=== PATIENT | female | born 1990 | race Caucasian/White ===

== ENCOUNTER → 2023-10-01 16:49 | Outpatient (REF) | payer OTHER, SELFPAY | LOC: PNTC 16:49 | PROVIDERS: ATTENDING PHYSICIAN Obstetrics & Gynecology | DX: O09.529 Supervision of elderly multigravida, unspecified trimester (principal); O99.210 Obesity complicating pregnancy, unspecified trimester; D25.9 Leiomyoma of uterus, unspecified | CPT/HCPCS: 76805 ==

== ENCOUNTER → 2023-10-29 16:23 | Outpatient (REF) | payer OTHER, SELFPAY | LOC: PNTC 16:23 | PROVIDERS: ATTENDING PHYSICIAN Obstetrics & Gynecology | DX: O09.529 Supervision of elderly multigravida, unspecified trimester (principal); O99.210 Obesity complicating pregnancy, unspecified trimester; D25.9 Leiomyoma of uterus, unspecified | CPT/HCPCS: 76811 ==

== ENCOUNTER → 2023-11-10 16:48 | Outpatient (REF) | payer OTHER, SELFPAY | LOC: PNTC 16:48 | PROVIDERS: ATTENDING PHYSICIAN Obstetrics & Gynecology | DX: O99.210 Obesity complicating pregnancy, unspecified trimester (principal); O28.3 Abnormal ultrasonic finding on antenatal screening of mother; O34.10 Maternal care for benign tumor of corpus uteri, unspecified trimester | CPT/HCPCS: 76815 ==

== ENCOUNTER → 2023-12-02 13:45 | Outpatient (REF) | payer OTHER, SELFPAY | LOC: PNTC 13:45 | PROVIDERS: ATTENDING PHYSICIAN Obstetrics & Gynecology | DX: O99.210 Obesity complicating pregnancy, unspecified trimester (principal) | CPT/HCPCS: 76816 ==

== ENCOUNTER → 2023-12-31 16:21 | Outpatient (REF) | payer OTHER, SELFPAY | LOC: PNTC 16:21 | PROVIDERS: ATTENDING PHYSICIAN Obstetrics & Gynecology | DX: O99.210 Obesity complicating pregnancy, unspecified trimester (principal); O34.10 Maternal care for benign tumor of corpus uteri, unspecified trimester | CPT/HCPCS: 76816 ==

== ENCOUNTER → 2024-02-04 16:56 | Outpatient (REF) | payer OTHER, SELFPAY | LOC: PNTC 16:56 | PROVIDERS: ATTENDING PHYSICIAN Obstetrics & Gynecology | DX: O99.210 Obesity complicating pregnancy, unspecified trimester (principal); O34.10 Maternal care for benign tumor of corpus uteri, unspecified trimester | CPT/HCPCS: 59025 ==

== ENCOUNTER → 2024-02-11 17:00 | Outpatient (REF) | payer OTHER, SELFPAY | LOC: PNTC 17:00 | PROVIDERS: ATTENDING PHYSICIAN Obstetrics & Gynecology | DX: O09.519 Supervision of elderly primigravida, unspecified trimester (principal); O34.10 Maternal care for benign tumor of corpus uteri, unspecified trimester | CPT/HCPCS: 59025 ==

== ENCOUNTER → 2024-02-15 17:43 | Outpatient (REF) | payer OTHER, SELFPAY | LOC: PNTC 17:43 | PROVIDERS: ATTENDING PHYSICIAN Obstetrics & Gynecology | DX: O36.8190 Decreased fetal movements, unspecified trimester, not applicable or unspecified (principal) | CPT/HCPCS: 76815 ==

== ENCOUNTER → 2024-02-18 17:02 | Outpatient (REF) | payer OTHER, SELFPAY | LOC: PNTC 17:02 | PROVIDERS: ATTENDING PHYSICIAN Obstetrics & Gynecology | DX: O99.210 Obesity complicating pregnancy, unspecified trimester (principal); Z87.42 Personal history of other diseases of the female genital tract | CPT/HCPCS: 59025 ==

== ENCOUNTER → 2024-02-24 15:53 | Outpatient (REF) | payer OTHER, SELFPAY | LOC: PNTC 15:53 | PROVIDERS: ATTENDING PHYSICIAN Obstetrics & Gynecology | DX: O99.210 Obesity complicating pregnancy, unspecified trimester (principal); Z98.891 History of uterine scar from previous surgery | CPT/HCPCS: 59025 ==

== ENCOUNTER 2024-03-01 00:02 | Inpatient (IN) | payer OTHER, SELFPAY ==
[2024-03-01 00:24] VITALS: BP 143/69; BMI 40.4
[2024-03-01 01:02] LABS: % Basophils 0.3 % (0-2); % Eosinophils 0.9 % (0-6); % Immature Granulocytes 0.9 % (0-0.5); % Lymphocytes 17.9 % (20.5-51.1); % Monocytes 5.5 % (1.7-9.3); % Neutrophils 74.5 % (42.2-75.2); Absolute Eosinophils 0.1 10^3/uL (0-0.7); Absolute Immature Granulocytes 0.1 10^3/uL (0-0.05); Absolute Lymphocytes 2.4 10^3/uL (1.2-3.4); Absolute Monocytes 0.7 10^3/uL (0.1-0.6); Absolute Neutrophils 9.8 10^3/uL (1.4-6.5); Hematocrit 34.5 % (37.0-47.0); Hemoglobin 11.9 g/dL (12.0-16.0); Mean Corp Hgb Conc. 34.5 g/dL (33.0-37.0); Mean Corpuscular Hgb 29.5 pg (27.0-31.0); Mean Corpuscular Volume 85.4 fL (81.0-99.0); Nucleated Red Blood Cells % 0 %; Platelet Count 270 10^3/uL (130-400); Red Blood Cell Count 4.04 10^6/uL (4.20-5.40); Red Cell Dist. Width 14.1 % (11.5-14.5); White Blood Cell Count 13.2 10^3/uL (4.8-10.8)
[2024-03-01] MEDS: PENICILLIN 110 UNITS IV (01:11)
[2024-03-01] MEDS: PENICILLIN 55 UNITS IV ×3 (05:15→13:13)
[2024-03-01] MEDS: FENTANYL/BUPIVACAINE 100 EPIDURAL (07:25)
[2024-03-01] MEDS: SUBLIMAZE 100 MCG EPIDURAL (07:25)
[2024-03-01] MEDS: LR 1000 IV ×2 (08:15→09:47)
[2024-03-01] MEDS: PITOCIN 30 UNITS/NSS 500 ML IV ×2 (09:47→15:08)
[2024-03-01] MEDS: ZOFRAN 4 MG IV (09:47)
[2024-03-01] MEDS: MOTRIN 600 MG PO (20:55)
[2024-03-01] MEDS: TYLENOL 650 MG PO (23:14)
[2024-03-02] MEDS: MOTRIN 600 MG PO ×3 (03:43→20:32)
[2024-03-02 05:23] LABS: Hematocrit 29.3 % (37.0-47.0); Hemoglobin 9.9 g/dL (12.0-16.0)
[2024-03-02] MEDS: PRENATAL PLUS 1 TABLET PO (08:04)
[2024-03-02] MEDS: SENOKOT-S 1 TABLET PO (08:04)
[2024-03-02] MEDS: TYLENOL 650 MG PO ×2 (11:57→20:32)
[2024-03-02] MEDS: DIFLUCAN 150 MG PO (13:57)
[2024-03-03] MEDS: MOTRIN 600 MG PO ×2 (06:21→12:25)
[2024-03-03] MEDS: TYLENOL 650 MG PO ×2 (06:21→12:26)
[2024-03-03] MEDS: PRENATAL PLUS 1 TABLET PO (08:39)
[2024-03-03] MEDS: FEOSOL 325 MG PO (08:39)
[2024-03-04 14:01] LABS: Syphilis/T. pallidum Ab Reflex Negative (Negative)
== END 2024-03-03 13:00 | disposition home or self-care (01) | DRG 806 ==
LOC: LDRP 00:02
PROVIDERS: Obstetrics & Gynecology; ADMITTING PHYSICIAN Obstetrics & Gynecology
PROC: 0KQM0ZZ Repair Perineum Muscle, Open Approach (ICD-10-PCS; 2024-03-01)
PROC: 10E0XZZ Delivery of Products of Conception, External Approach (ICD-10-PCS; 2024-03-01)
DX: O99.824 Streptococcus B carrier state complicating childbirth (principal); O98.82 Other maternal infectious and parasitic diseases complicating childbirth; Z37.0 Single live birth; O70.1 Second degree perineal laceration during delivery; B37.31 Acute candidiasis of vulva and vagina; O99.214 Obesity complicating childbirth; Z3A.38 38 weeks gestation of pregnancy
CPT/HCPCS: 85014; 85018; 85025; 86780; 86850; 86900; 86901